=== PATIENT | female | born 1965 | race Caucasian/White ===

== ENCOUNTER 2017-12-22 01:20 | Emergency (ER) | payer OTHER ==
[2017-12-22] MEDS ORDERED: KETOROLAC 15 MG INJ IV (01:48)
[2017-12-22] MEDS: SOD CHLORIDE 0.9% 1,000 ML IV (02:08)
[2017-12-22] MEDS: DIPHENHYDRAMINE 50 MG INJ IV (02:08)
[2017-12-22] MEDS: METOCLOPRAMIDE 10 MG INJ IV (02:08)
== END 2017-12-22 04:46 | disposition home or self-care (01) ==
LOC: FTE 01:20
DX: R51 Headache (principal)
CPT/HCPCS: 70450; 96374; 96375; 99285-25